=== PATIENT | female | born 1970 | race Caucasian/White ===

== ENCOUNTER 2022-10-07 17:59 | Emergency (ER) | payer BC, SELFPAY ==
[2022-10-07 18:00] VITALS: BP 131/82; PULSE 76; RESP 16; TEMP 36.4; O2SAT 100; BMI 21.6
--- NOTE | 2022-10-07 18:15 | RAD_ITS ---
EXAM: XR RIGHT FOOT COMPLETE, 3 OR MORE VIEWS CLINICAL INDICATION: None provided. INJURY STUBBED FOOT ON DOOR FRAME. ANTERIOR BRUISING AND SWELLING. 5 DIGIT PAIN. TECHNIQUE: Frontal, lateral and oblique views of the right foot. COMPARISON: No relevant prior studies available. FINDINGS: BONES/JOINTS: Fracture of the fifth proximal phalanx. This is comminuted. Preservation of the joint space. No sclerotic or destructive changes observed. SOFT TISSUES: Soft tissue swelling overlying the fifth digit. Soft tissue swelling along the dorsum of the foot. No radiopaque foreign body. RAD/Foot min 3 Views IMPRESSION: Fracture of the fifth proximal phalanx. This is comminuted. Electronically Signed: Nelson Rangel MD at 18:48 EDT ,
--- NOTE | 2022-10-07 21:26 | ED.VIS.LOWEX ---
HPI History of Present Illness Chief Complaint: Lower Extremity Injury Detail of Chief Complaint: Injury to right little toe yesterday Informant: patient Occured/Mechanism Mechanism/Context: Yes blunt trauma Onset/Context/Timing Onset: Yesterday Context: Sudden Onset Timing: Continuous Quality of Pain: Dull, Aching and Throbbing Location: Right little toe Current Severity: Mild Maximum Severity: Moderate Worsened by: Pressure Relieved by: Nothing Associated Symptoms Associated Symptoms: Negative for Parasthesia, Weakness or Loss of Funtion Narrative Narrative: Patient is a 52-year-old woman who presents with injury to her right little toe. She was chasing her cat. She had blunt trauma. She denies paresthesia, anesthesia medics. She denies prior injury. She is not on an antithrombotic or anticoagulant. Tetanus Immunization: Unknown Prior similar symptoms: No Recent Illness/Hospitalization: No PFSH PFSH Medical History no medical history no medical history Allergy/AdvReac Type Severity Reaction Status Date / Time No Known Allergies Allergy Unverified 09/19/17 13:22 Family History Other Cancer Social History (Updated 10/07/22 @ 21:[address] Micky Amanda MD) household members: none Smoking Status: Never smoker alcohol intake: never ROS ROS ED Integumentary Denies Abrasions or rash Neurologic Neurologic: Denies paresthesias or weakness Hematologic/Lymphatic Hematologic/Lymphatic: Denies easy bleeding or easy bruising EXAM Physical Exam Const Vital Signs: 10/07/22 18:00 Temperature 97.6 F L Temperature Source Temporal Pulse Rate 76 Respiratory Rate 16 Blood Pressure 131/82 H Blood Pressure Mean 98 Pulse Ox 100 Oxygen Delivery Method Room Air Positive well nourished and well developed General Appearance ED: well developed and NAD HEENT Reports moist mucous membranes normocephalic and atraumatic Eyes Eyes Narrative: Pupils equal round reactive. Extraocular muscles are intact. Neck full ROM Resp normal respiratory effort Cardio regular rate and regular rhythm Extremity Negative for normal to inspection Extremity Narrative: Swelling ecchymosis of the right little toe. Unable to determine there is subungual hematoma since her toenails are polished. She has normal sensation. Normal capillary refill. Neuro oriented x3, CN's II-XII intact bilaterally, moves all extremities and no sensory deficits noted Motor Exam: strength 5/5 throughout Psych mental status grossly normal Skin Skin Narrative: Bruising and soft tissue swelling right little toe MDM MDM MDM Narrative Medical decision making narrative: X-ray was obtained per nurse protocol. Impression fracture versus contusion. Radiography Chest X-Ray - ED: Read by ED Physician (Three-view x-ray of the foot was obtained. Patient has a comminuted fracture of the proximal phalanx right little toe. We will bernice tape the fifth/little toe to the fourth toe and have her follow-up with Dr. Aguayo who is on-call for orthopedics.) Diagnostic Testing: Clinical Impression(s) from Imaging Studies Foot X-Ray 10/07/22 18:15 IMPRESSION: Fracture of the fifth proximal phalanx. This is comminuted. Electronically Signed: Nelson Rangel MD at 18:48 EDT Reading Location ID and State: [facility] / ID , Service support , Discharge Plan Triage Chief Complaint: Lower Extremity Injury ED Provider: Micky Amanda Dx/Rx/DC Orders Clinical Impression: Closed fracture of proximal phalanx of toe of right foot Instructions: ED Fracture, Toe, Closed Primary Care Provider: Olivia Perez NP Referrals: Gonzalez Mejia DO [Med Staff - Active Staff] - 5-7 Days Olivia Perez NP, DATA INTEGRATION ANALYST-C [Primary Care Provider] - 5-7 Days Activity Restrictions/Additional Instructions: You may change the tape every 2 [address] Mejia's office for follow-up in 5 to 7 days Disposition Disposition: Home, Self Care
== END 2022-10-07 22:30 | disposition home or self-care (01) ==
PROVIDERS: Emergency Provider Emergency Medicine; PCP Nurse Practitioner Family; Visit Provider Emergency Medicine
DX: S92.511A Displaced fracture of proximal phalanx of right lesser toe(s), initial encounter for closed fracture (principal); X58.XXXA Exposure to other specified factors, initial encounter
CPT/HCPCS: 73630; 99282

== ENCOUNTER 2022-12-20 10:58 | Emergency (ER) | payer BC, SELFPAY ==
[2022-12-20 10:59] VITALS: BP 173/75; PULSE 76; RESP 14; TEMP 35.7; O2SAT 98; BMI 23.8
--- NOTE | 2022-12-20 11:11 | EDS_ITS ---
HPI History of Present Illness Chief Complaint: Abd Pain Narrative Narrative: Patient is a 52-year-old female with no significant medical history. Patient takes no medications daily. Patient states she been having right lower quadrant pain over the last 2 weeks. It is intermittent however is getting much worse over the last couple days. She states that every time she eats she is have diarrhea and severe cramping. She denies any blood in her stool, she denies any nausea or vomiting. She denies any fever or chills. [facility] where they told her to come to the emergency department for further evaluation [facility] Home Medications NK 12/20/22 [History Last Taken Unknown] Allergy/AdvReac Type Severity Reaction Status Date / Time No Known Allergies Allergy Verified 12/20/22 10:59 Family History Other Cancer Surgical History (Updated 12/20/22 @ 11:22 by Tierney Sarkar) Hx of section Social History (Updated 10/07/22 @ 21:[address] Micky Amanda MD) household members: none Smoking Status: Never smoker alcohol intake: never ROS ROS ED ROS Narrative Constitutional: Negative for fever, chills, weight loss, weakness Eyes: Negative for vision loss, vision change, double vision ENT: Negative for any sore throat, ear pain, congestion Cardiovascular: Negative for any chest pain, tightness, palpitations Respiratory: Negative for any cough, sputum production, hemoptysis, dyspnea, dyspnea on exertion, orthopnea Gastrointestinal: Negative for any nausea, vomiting, diarrhea, constipation, blood in stool, blood in vomit. Positive for abdominal pain : Negative for any urinary frequency, dysuria, retention, blood in urine Muscle skeletal: Negative for any muscle joint pain, stiffness, myalgias, arthralgias, neck pain, back pain Neurological: Negative for any headache, syncope, numbness or tingling, dizziness Skin: Negative for any rashes, lumps, itching, abrasions, lacerations Psychiatric: Negative for any depression, anxiety, stress, suicidal ideation, homicidal ideation Hematologic: Negative for any easy bruising, excessive bruising, easy bleeding Allergies: Negative for any eczema, hives, rash EXAM Physical Exam Narrative Exam Narrative: Vital signs reviewed. HEET: Head normocephalic atraumatic, TMs clear bilaterally. Posterior pharynx is clear, moist mucous membranes. Nares clear bilaterally. Neck: Supple with no lymphadenopathy or tenderness. No signs of meningismus, negative jolt sign. Cardiac: Regular rate and rhythm no murmurs gallops or rubs, equal peripheral pulses bilaterally. Respiratory: Lungs clear to auscultation bilaterally. No chest tenderness. Abdomen: Soft, nondistended. No abdominal bruit or pulsatile masses. No hepatosplenomegaly. Patient has tenderness to the right lower quadrant, active bowel sounds in all quadrants. No peritoneal signs. No guarding Extremities: No peripheral edema, no signs of gross trauma or deformity. Active full range of motion of all extremities. Neuro: Cranial nerves II through XII intact, no focal neurological deficits. Skin: Clean dry and intact with no rash, purpura, petechiae, vesicles or pustules. Backs/flank: No CVA tenderness, no midline spinal tenderness, no deformity. Psych: Normal mood and affect. No SI, HI or acute psychosis. Const Vital Signs: 12/20/22 10:59 Temperature 96.2 F L Temperature Source Temporal Pulse Rate 76 Respiratory Rate 14 Blood Pressure 173/75 H Blood Pressure Mean 107 Pulse Ox 98 Oxygen Delivery Method Room Air Positive well nourished and well developed General Appearance ED: well developed MDM MDM Lab Data Labs: Laboratory Results - last 24 hr 12/20/22 12/20/22 11:17 11:23 WBC 5.6 RBC 4.64 Hgb 13.2 Hct 41.1 MCV 88.6 MCH 28.4 MCHC 32.1 RDW Std Deviation 41.1 RDW Coeff of [place] 12.7 Plt Count 246 MPV 9.1 Immature Gran % (Auto) 0.400 Neut % (Auto) 64.0 Lymph % (Auto) 25.2 Saline % (Auto) 6.1 Eos % (Auto) 3.9 Baso % (Auto) 0.4 Absolute Neuts (auto) 3.6 Absolute Lymphs (auto) 1.41 Nucleated RBC % 0 Sodium 139 Potassium 3.6 Chloride 106 Carbon Dioxide 28.0 Anion Gap 5 BUN 11 Creatinine 0.83 Estim Creat Clear Calc 68.47 Est GFR (MDRD) Af Amer 93 Est GFR (MDRD) Non-Af 76 BUN/Creatinine Ratio 13.2 Glucose 87 Calcium 8.9 Total Bilirubin 0.50 AST 18 ALT 22 Alkaline Phosphatase 70 Total Protein 7.9 Albumin 3.8 Globulin 4.1 Albumin/Globulin Ratio 0.9 Lipase 54 Urine Color Yellow Urine Clarity Clear Urine pH 7.0 Ur Specific [place] 1.010 Urine Protein 15 H Urine Glucose (UA) Normal Urine Ketones Negative Urine Occult Blood 50 H Urine Nitrite Negative Urine Bilirubin Negative Urine Urobilinogen Normal Ur Leukocyte Esterase 25 H Urine RBC 0 SEEN Urine WBC 0 SEEN Ur Squamous Epith Cells 0-5 SEEN Urine Bacteria 0 SEEN Urine Mucus 0 SEEN Urine Test Negative Radiography Diagnostic Testing: Clinical Impression(s) from Imaging Studies Abdomen/Pelvis CT 12/20/22 11:33 IMPRESSION: Mildly prominent lymph nodes noted scattered in the right lower quadrant mesentery raising the suspicion for mesenteric adenitis. Stable or decreased size of pulmonary nodules. Clinical correlation recommended. Electronically Signed: Vikram Schneider, at 14:09 EDT Reading Location ID and State: [address] [place] [address] Tel , Service support , Treatment and Re-Evaluation :: Patient appears generally well, patient appears nontoxic, vital signs are stable. All radiologic examinations were read, reviewed by the emergency department attending. From these reads, a plan of care will be put in place. Patient presents to the emergency department for abdominal pain over the last 2 weeks. Patient will receive a full abdominal work-up with abdominal labs as well as abdominal CT scan. This will rule out any acute appendicitis, ileus, colitis, diverticulitis. Discharge Plan Triage Chief Complaint: Abd Pain ED Midlevel Provider: Clarence Fernandes ED Provider: Casi Lacey Dx/Rx/DC Orders Prescriptions: No Action NK Primary Care Provider: Olivia Perez NP Referrals: Olivia Perez NP, FOOD AND BEVERAGE OUTLETS MANAGER-C [Primary Care Provider] -
[2022-12-20 11:25] LABS: Absolute Lymphocyte Count 1.41 X10^3/uL (0.83-4.51); Absolute Neutrophil Count 3.6 X10^3/uL (2.0-7.7); Basophil# 0.02 X10^3/uL; Basophil% 0.4 % (0-1); Eosinophil# 0.22 X10^3/uL; Eosinophils% 3.9 % (0-5); Hematocrit 41.1 % (37-47); Hemoglobin 13.2 g/dL (12.0-15.0); Lymphocyte # 1.41 X10^3/ul (0.83-4.51); Lymphocyte % 25.2 % (19-41); Mean Corp Hgb Conc 32.1 g/dL (32-36); Mean Corpuscular Hgb 28.4 pg (27.0-32.0); Mean Corpuscular Volume 88.6 fL (81-99); Mean Platelet Vol. 9.1 fl (6.2-12.0); Monocyte# 0.34 X10^3/uL; Monocyte% 6.1 % (0-10); NRBC Flagged by Analyzer 0 % (0-5); Neutrophil # 3.59 X10^3/uL (2.7-7.7); Platelet Count 246 K/mm3 (150-450); RBC Distribution Width CV 12.7 % (11.6-14.6); RBC Distribution Width SD 41.1 fl (35.1-43.9); Red Blood Count 4.64 M/mm3 (4.2-5.4); White Blood Count 5.6 K/mm3 (4.4-11.0)
[2022-12-20] MEDS: 0.9% Normal Saline 1,000 ML 1000 ML IV (11:25)
[2022-12-20 11:29] LABS: Bacteria 0 SEEN /hpf (None Seen); Mucous, Urine 0 SEEN /hpf (<or=2+); Red Blood Cells-Urine 0 SEEN /hpf (0-5); White Blood Cells 0 SEEN /hpf (0-5)
[2022-12-20 11:32] LABS: Color, Urine Yellow (Yellow); Glucose, Dipstick Normal (Normal); Ketone-Dipstick Negative (Negative); Leukocyte Esterase-Dipstick 25 /ul (Negative); Nitrite-Dipstick Negative (Negative); Occult Blood-Urine 50 /ul (Negative); Protein-Dipstick 15 mg/dl (Negative); Urine Bilirubin Dipstick Negative (Negative); Urine Clarity Clear (Clear); Urine Urobilinogen Normal (Normal)
[2022-12-20 11:33] LABS: Internal QC Validated? YES +Cl - CLEAR BKGD; Pregnancy, Urine Negative Negative
--- NOTE | 2022-12-20 11:33 | CT_ITS ---
STUDY: CT ABDOMEN AND PELVIS WITH CONTRAST - URINARY TRACT REASON FOR EXAM: Female, 52 years old. right abd pain -- IV PO Contrast RADIATION DOSAGE (If Supplied By Facility): CTDIvol = ( 9.70 ) mGy, DLP = ( 466.71 ) mGycm TECHNIQUE: Oral and IV Gastrografin and 100mL Isovue-370 was administered. Transaxial images were obtained from the dome of the diaphragm to the symphysis pubis in the arterial, nephrographic and excretory phases. Multiplanar coronal and sagittal images were reformatted. Individualized Dose Optimization Techniques Were Used For This CT. COMPARISON: FINDINGS: There is a 6 mm and a 1 cm nodule in the right lower lobe appearing smaller than the previous study from January 15, 2013 as well as a 7 mm pleural-based nodule in the left lower lobe appearing grossly stable. The visualized portions of the heart are within normal limits. Normal liver. Normal gallbladder and extrahepatic biliary system. Normal spleen. Normal pancreas. Normal bilateral adrenal glands. Normal visualized stomach. Normal small intestine. Normal colon. Appendix is not well-visualized. Normal abdominal aorta. There are minimally prominent 1 cm inguinal lymph nodes bilaterally. Normal right kidney. Normal left kidney. Normal urinary bladder. Normal abdominal wall. No focal bony abnormalities are appreciated. PERITONEUM: There are minimally prominent lymph nodes scattered throughout the mesentery particularly in the right lower quadrant. CT/Abdomen/Pelvis WITH Contrast IMPRESSION: Mildly prominent lymph nodes noted scattered in the right lower quadrant mesentery raising the suspicion for mesenteric adenitis. Stable or decreased size of pulmonary nodules. Clinical correlation recommended. Electronically Signed: Vikram Schneider, at 14:09 EDT ,
[2022-12-20 11:41] LABS: ALB/GLOB Ratio 0.9 RATIO (0.9-2.4); AST(SGOT) 18 U/L (15-37); Alanine Aminotransfer ALT/SGPT 22 U/L (13-56); Albumin, Serum 3.8 g/dL (3.2-5.0); Alkaline Phosphatase 70 U/L (45-117); Anion Gap 5 (5-15); BUN 11 mg/dL (7-18); BUN/Creat Ratio 13.2 RATIO (10-20); Calcium,Total 8.9 mg/dL (8.5-10.1); Chloride 106 mmol/L (98-107); Creatinine, Serum 0.83 mg/dL (0.55-1.02); EST Glomerular Filtration Rate 76 mL/min (>60); Est Glom Filt Rate - Afr Amer 93 mL/min (>60); Estimated Creatinine Clearance 68.47 ml/min; Globulin 4.1 g/dL (2.2-4.2); Glucose 87 mg/dL (74-106); Lipase 54 U/L (13-75); Potassium 3.6 mmol/L (3.5-5.1); Protein, Total 7.9 g/dL (6.4-8.2); Sodium Level 139 mmol/L (136-145)
[2022-12-20 11:43] LABS: Squamous Epithelial Cells - UA 0-5 SEEN /hpf (5-10)
== END 2022-12-20 23:59 | disposition home or self-care (01) ==
LOC: ED 12:03
PROVIDERS: Nurse Practitioner; Emergency Provider Emergency Medicine; PCP Nurse Practitioner Family; Visit Provider Emergency Medicine
DX: I88.0 Nonspecific mesenteric lymphadenitis (principal)
CPT/HCPCS: 74177; 80053; 81001; 81025; 83690; 85025; 96360; 96361; 99282; J7030; Q9967; A4216

== ENCOUNTER → 2024-05-20 | Outpatient (CLI) | payer BC, SELFPAY | END | disposition home or self-care (01) | LOC: LABSPEC 12:21 | PROVIDERS: PCP Nurse Practitioner Family; Referring Provider Nurse Practitioner Family; Visit Provider Nurse Practitioner Family | DX: N39.0 Urinary tract infection, site not specified (principal) | CPT/HCPCS: 87077; 87086; 87088; 87186 ==

== ENCOUNTER → 2024-07-03 | Outpatient (CLI) | payer BC, SELFPAY ==
--- NOTE | 2024-07-03 10:31 | US_ITS ---
PROCEDURE: ABDOMEN LIMITED REASON FOR EXAM: Pain COMPARISON: None FINDINGS: Liver: Grossly normal size and echotexture. Gallbladder: No stones, sludge, wall thickening or tenderness. Common bile duct: Normal measuring . Pancreas: Visualized portions are sonographically unremarkable. Visualized portions of the right kidney are unremarkable. No right upper quadrant ascites. US/Abdomen Limited IMPRESSION: NORMAL RIGHT UPPER QUADRANT ULTRASOUND. Reading Location: [facility]
== END | disposition home or self-care (01) ==
LOC: US 10:29
PROVIDERS: PCP Nurse Practitioner Family; Referring Provider Family Medicine; Visit Provider Family Medicine
DX: R10.11 Right upper quadrant pain (principal)
CPT/HCPCS: 76705

== ENCOUNTER → 2024-10-21 | Outpatient (CLI) | payer BC, SELFPAY | END | disposition home or self-care (01) | LOC: LABSPEC 12:12 | PROVIDERS: PCP Nurse Practitioner Family; Referring Provider Nurse Practitioner Family; Visit Provider Nurse Practitioner Family | DX: R30.0 Dysuria (principal) | CPT/HCPCS: 87077; 87086; 87088; 87186 ==

== ENCOUNTER → 2024-11-15 | Outpatient (CLI) | payer BC, SELFPAY | END | disposition home or self-care (01) | LOC: LABSPEC 10:35 | PROVIDERS: PCP Nurse Practitioner Family; Visit Provider Nurse Practitioner Family | DX: N39.0 Urinary tract infection, site not specified (principal) | CPT/HCPCS: 87077; 87086; 87088; 87186 ==